=== PATIENT | female | born 1985 | race Two or more races ===

== ENCOUNTER → 2016-08-15 | Outpatient (CLI) | payer MEDICAID | LOC: FIMAGING 12:23 | DX: O35.8XX0 Maternal care for other (suspected) fetal abnormality and damage, not applicable or unspecified (principal); O09.212 Supervision of pregnancy with history of pre-term labor, second trimester; Z3A.21 21 weeks gestation of pregnancy ==

== ENCOUNTER → 2016-09-12 | Outpatient (CLI) | payer MEDICAID | LOC: FIMAGING 12:16 | DX: O35.8XX0 Maternal care for other (suspected) fetal abnormality and damage, not applicable or unspecified (principal); Z3A.25 25 weeks gestation of pregnancy ==

== ENCOUNTER → 2016-10-17 | Outpatient (CLI) | payer MEDICAID | LOC: FIMAGING 12:53 | DX: O35.8XX0 Maternal care for other (suspected) fetal abnormality and damage, not applicable or unspecified (principal); Z3A.30 30 weeks gestation of pregnancy ==

== ENCOUNTER → 2016-11-16 | Outpatient (CLI) | payer MEDICAID | LOC: FIMAGING 13:03 | PROVIDERS: ATTEND Obstetrics & Gynecology | DX: O41.8X30 Other specified disorders of amniotic fluid and membranes, third trimester, not applicable or unspecified (principal); O35.8XX0 Maternal care for other (suspected) fetal abnormality and damage, not applicable or unspecified; Z3A.35 35 weeks gestation of pregnancy ==